=== PATIENT | female | born 1990 | race Caucasian/White ===

== ENCOUNTER 2016-10-20 17:23 | Emergency (ER) | payer OTHER ==
[~2016-10-20] VITALS: Ht 162.6 cm; Wt 102.1 kg
[~2016-10-20 17:23] MED LIST: DOXY100C2 PO; HYDR-707 PO; PREN1TAB39 PO
--- NOTE | 2016-10-20 17:33 | ED Abdominal Pain ---
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 She's had light vaginal bleeding for one hour noticed when wiping after urinating. Ab1. She 9 weeks gestation roughly and she is scheduled to see Dr. José this Tuesday. She states "I'm extremely anxious". States that she took Zoloft and lorazepam prior to finding out she was . She states that she ran out of her IntroFly samples 2 days ago and has been nauseated since but that it did work well for her. Timing/Duration: 1-3 Hours Severity/Quality: Moderate Location: Suprapubic Radiation: No Radiation Activities at Onset: None Associated Symptoms: No Fever/Chills, No Nausea/Vomiting Allergies and Home Medications Allergies Coded Allergies: Penicillins (Unverified Allergy, Mild, 10/12/09) Home Medications Doxycycline Hyclate 100 Mg Capsule, 1 EACH PO BID for 7 Days, Ref 0 Prescribed by: FRANCO SAUCEDO MD on 10/13/09 0234 Doxylamine/Pyridoxine HCl 1 Each Tablet.dr, 2 EACH PO HS, #30 Prescribed by: MAGDALENA GALLEGOS on 10/20/16 1821 Hydrocodone Bit/Acetaminophen 1 Each Tablet, 1 EACH PO Q 4 - 6 HR PRN, #14 Ref 0 Prescribed by: FRANCO SAUCEDO MD on 10/13/09 0236 Vits W-Ca,Fe,Fa(<1MG) 1 Each Tablet, 1 EACH PO DAILY, (Reported) Review of Systems Constitutional: see HPI EENTM: No Symptoms Reported Respiratory: No Symptoms Reported Cardiovascular: No Symptoms Reported Gastrointestinal: See HPI Genitourinary: No Symptoms Reported Musculoskeletal: no symptoms reported Skin: no symptoms reported Psychiatric/Neurological: No Symptoms Reported Endocrine: No Symptoms Reported Hematologic/Lymphatic: No Symptoms Reported Past Wdckcrv-Whdgfe-Mjytcd Hx Patient Social History Alcohol Use: Denies Use Recreational Drug Use: Yes (marjuana use in past) Smoking Status: Former Smoker Recent Foreign Travel: No Contact w/Someone Who Travel: No Recent Infectious Disease Expo: No Recent Hopitalizations: No Surgeries HX Surgeries: Yes (D&C, wisdom teeth) Respiratory Hx Respiratory Disorders: No Cardiovascular Hx Cardiac Disorders: No Neurological Hx Neurological Disorders: No Reproductive System Hx Reproductive Disorders: No Sexually Transmitted Disease: No Genitourinary Hx Genitourinary Disorders: No Gastrointestinal Hx Gastrointestinal Disorders: No Musculoskeletal Hx Musculoskeletal Disorders: No Endocrine Hx Endocrine Disorders: No HEENT HX ENT Disorders: No Psychosocial Hx Psychiatric Problems: Yes Blood Transfusions Hx Blood Disorders: No Physical Exam Vital Signs VS - Last 72 Hours, by Label 10/20/16 17:28 Temp 97.9 Pulse 113 Resp 18 B/P (MAP) 146/89 Pulse Ox 94 O2 Delivery Room Air Capillary Refill : Less Than 3 Seconds General Appearance: WD/WN, no apparent distress HEENT: PERRL/EOMI, normal ENT inspection Neck: non-tender, full range of motion Respiratory: normal breath sounds, no respiratory distress, no accessory muscle use Cardiovascular: regular rate, rhythm, no murmur Gastrointestinal: normal bowel sounds, soft, tenderness Genital/Rectal: other (pelvic exam done with JABIER Ruffin at the bedside. There are no vaginal lacerations seen. There is a mild amount of dark bloody material at the cervical os) Extremities: normal range of motion, non-tender Neurologic/Psychiatric: alert, normal mood/affect, oriented x 3 Skin: normal color, warm/dry Progress/Results/Core Measures Results/Orders Lab Results Laboratory Tests Test 10/20/16 17:33 10/20/16 18:25 10/20/16 18:26 Range/Units White Blood Count 17.2 H 4.3-11.0 10^3/uL Red Blood Count 4.58 4.35-5.85 10^6/uL Hemoglobin 13.9 11.5-16.0 G/DL Hematocrit 40 35-52 % Mean Corpuscular Volume 88 80-99 FL Mean Corpuscular Hemoglobin 30 25-34 PG Mean Corpuscular Hemoglobin Concent 35 32-36 G/DL Red Cell Distribution Width 13.4 10.0-14.5 % Platelet Count 324 130-400 10^3/uL Mean Platelet Volume 10.2 7.4-10.4 FL Neutrophils (%) (Auto) 72 42-75 % Lymphocytes (%) (Auto) 21 12-44 % Monocytes (%) (Auto) 6 0-12 % Eosinophils (%) (Auto) 0 0-10 % Basophils (%) (Auto) 0 0-10 % Neutrophils # (Auto) 12.3 H 1.8-7.8 X 10^3 Lymphocytes # (Auto) 3.7 1.0-4.0 X 10^3 Monocytes # (Auto) 1.1 H 0.0-1.0 X 10^3 Eosinophils # (Auto) 0.1 0.0-0.3 10^3/uL Basophils # (Auto) 0.1 0.0-0.1 10^3/uL Neutrophils % (Manual) 73 % Lymphocytes % (Manual) 21 % Monocytes % (Manual) 3 % Eosinophils % (Manual) 0 % Basophils % (Manual) 0 % Band Neutrophils 0 % Reactive Lymphocytes 3 % Blood Morphology Comment NORMAL Human Chorionic Gonadotropin, Quant [id number] H <5 MIU/ML Urine Color STEPHANIE H Urine Clarity VERY CLOUDY H Urine pH 6 5-9 Urine Specific [place] 1.025 H 1.016-1.022 Urine Protein 3+ H NEGATIVE Urine Glucose (UA) NEGATIVE NEGATIVE Urine Ketones 4+ H NEGATIVE Urine Nitrite NEGATIVE NEGATIVE Urine Bilirubin 1+ H NEGATIVE Urine Urobilinogen 4 H NORMAL MG/DL Urine Leukocyte Esterase 2+ H NEGATIVE Urine RBC (Auto) 5+ H NEGATIVE Urine RBC 5-10 H /HPF Urine WBC 2-5 /HPF Urine Squamous Epithelial Cells TNTC H /HPF Urine Crystals NONE /LPF Urine Bacteria MODERATE H /HPF Urine Casts NONE /LPF Urine Mucus NEGATIVE /LPF Urine Culture Indicated NO My Orders Orders - MAGDALENA GALLEGOS DIVERSIONAL THERAPIST'S ASSISTANT Hcg,Quantitative (10/20/16 17:30) Ua Culture If Indicated (10/20/16 17:30) Cbc With Automated Diff (10/20/16 17:30) Us Ob Single Fetus<14 [id number] (10/20/16 17:30) Diphenhydramine Tablet (Benadryl Tablet) (10/20/16 17:45) Manual Differential (10/20/16 17:33) Wet Prep (10/20/16 18:21) Neisseria Gonorrhea Dna (10/20/16 18:21) Chlamydia Dna (10/20/16 18:21) Genital Culture (10/20/16 18:21) Ondansetron Oral Dissolve Tab (Zofran (10/20/16 19:15) Medications Given in ED Current Medications Medications Dose Ordered Sig/Ramirez Route Start Time Stop Time Status Last Admin Dose Admin Diphenhydramine HCl 25 mg ONCE ONCE PO 10/20/16 17:45 10/20/16 17:46 DC 10/20/16 17:38 25 MG Vital Signs/I&O Vital Sign - Last 12Hours 10/20/16 17:28 Temp 97.9 Pulse 113 Resp 18 B/P (MAP) 146/89 Pulse Ox 94 O2 Delivery Room Air Blood Pressure Mean: 108 Diagnostic Imaging Diagonstic Imaging: Ultrasound Comments NAME: MARGA FENTON MED REC#: [id number] PT STATUS: REG ER : 1990 PHYSICIAN: MAGDALENA GALLEGOS APRN ADMIT DATE: 10/20/16/ER Draft Date of Exam:10/20/16 US OB SINGLE FETUS<14 [id number] CLINICAL INDICATION: Patient with light spotting and minor pelvic pain. EXAM: Transabdominal OB pelvic ultrasound. COMPARISON: No recent relevant ultrasound exam. FINDINGS: LMP is 08/14/2016. GA (by LMP): 9 weeks and 4 days ROBERT (by LMP): 05/21/2017 GA (by AUA): 8 weeks and 3 days ROBERT (by AUA): 05/29/2017 Gravid uterus is noted with a single live intrauterine seen. The crown-rump length measures 1.81 cm which is consistent with 8 weeks and 3 days gestation. Heart rate is 165 beats per minute. There is a roughly 2.6 cm area of fluid involving the anterior aspect concerning for subchorionic bleed. There is an average amount of amniotic fluid present. IMPRESSION: 1: There is a single, viable, 8 week 3 day intrauterine fetus present by ultrasound. 2: Concern for a 2.6 cm area of subchorionic bleed. Dictated on workstation # [id number] Dict: 10/20/161834 Trans: 10/20/161844 [id number] Interpreted by: ISHA WINKLER MD Electronically signed by: Departure Communication Progress Notes 1910-I did discuss with the patient that her urine was concentrated and with ketones and she should receive IV fluids. She states "I haven't been able to keep anything down today". I did recommend starting an IV, giving IV fluids and IV nausea medication. Patient states "oh no, I can't be poked again, I don' t want it". I will have her sign a refusal of treatment form. I discussed the ultrasound report showing some chorionic hematoma with the patient and the need for follow-up in [address] José as scheduled. Impression Impression: Primary Impression: Subchorionic hemorrhage in first trimester Disposition: HOME, SELF-CARE Condition: Stable Departure-Patient Inst. Decision time for Depature: 18:20 Referrals: NO,LOCAL PHYSICIAN (PCP/Family) Primary Care Physician Patient Instructions: Threatened Miscarriage Add. Discharge Instructions: 1. Return to ER for any concerns 2. Follow-up with Dr. José this Tuesday as scheduled 3. All discharge instructions reviewed with patient and/or family. Voiced understanding. Scripts Doxylamine/Pyridoxine HCl ([place] 10-10 mg Tablet) 1 Each Tablet. 2 EACH PO HS, #30 TAB Prov: MAGDALENA GALLEGOS APRN 10/20/16 Copy Copies To 1: MANINDER JOSÉ PETER J APRN Oct 20, 2016 17:33
[2016-10-20 17:41] LABS: BASOPHILS # (AUTO) 0.1 10^3/uL (0.0-0.1); BASOPHILS % (AUTO) 0 % (0-10); EOSINOPHILS # (AUTO) 0.1 10^3/uL (0.0-0.3); EOSINOPHILS % (AUTO) 0 % (0-10); LYMPHOCYTES # (AUTO) 3.7 X 10^3 (1.0-4.0); LYMPHOCYTES % (AUTO) 21 % (12-44); MEAN CORPUSCULAR HEMOGLOBIN 30 PG (25-34); MEAN CORPUSCULAR HGB CONC 35 G/DL (32-36); MEAN CORPUSCULAR VOLUME 88 FL (80-99); MEAN PLATELET VOLUME 10.2 FL (7.4-10.4); MONOCYTES # (AUTO) 1.1 X 10^3 (0.0-1.0); MONOCYTES % (AUTO) 6 % (0-12); NEUTROPHILS # (AUTO) 12.3 X 10^3 (1.8-7.8); NEUTROPHILS % (AUTO) 72 % (42-75); PLATELET COUNT 324 10^3/uL (130-400); RED BLOOD COUNT 4.58 10^6/uL (4.35-5.85); RED CELL DISTRIBUTION WIDTH 13.4 % (10.0-14.5); WHITE BLOOD COUNT 17.2 10^3/uL (4.3-11.0)
[2016-10-20] MEDS ORDERED: diphenhydrAMINE 25 MG TAB (BENADRYL) PO ONE (17:45)
[2016-10-20 18:08] LABS: BAND NEUTROPHILS 0 %; BASOPHILS % (MANUAL) 0 %; EOSINOPHILS % (MANUAL) 0 %; LYMPHOCYTES % (MANUAL) 21 %; NEUTROPHILS % (MANUAL) 73 %; REACTIVE LYMPHOCYTES 3 %
[2016-10-20] MEDS ORDERED: DOXY1TAB3 PO (18:21)
[2016-10-20 18:32] LABS: KETONES,URINE 4+ (NEGATIVE); LEUKOCYTE ESTERASE ,URINE 2+ (NEGATIVE); NITRITE,URINE NEGATIVE (NEGATIVE); PH,URINE 6 (5-9); PROTEIN,URINE 3+ (NEGATIVE); UROBILINOGEN,URINE 4 MG/DL (NORMAL)
[2016-10-20 18:45] LABS: BILIRUBIN,URINE 1+ (NEGATIVE); SQUAMOUS EPITHELIAL CELL,UR TNTC /HPF
--- NOTE | 2016-10-20 18:45 | Diagnostic Imaging Report ---
CLINICAL INDICATION: Patient with light spotting and minor pelvic pain. EXAM: Transabdominal OB pelvic ultrasound. COMPARISON: No recent relevant ultrasound exam. FINDINGS: LMP is 08/14/2016. GA (by LMP): 9 weeks and 4 days ROBERT (by LMP): 05/21/2017 GA (by AUA): 8 weeks and 3 days ROBERT (by AUA): 05/29/2017 Gravid uterus is noted with a single live intrauterine seen. The crown-rump length measures 1.81 cm which is consistent with 8 weeks and 3 days gestation. Heart rate is 165 beats per minute. There is a roughly 2.6 cm area of fluid involving the anterior aspect concerning for subchorionic blood. There is an average amount of amniotic fluid present. IMPRESSION: 1: There is a single, viable, 8 week 3 day intrauterine fetus present by ultrasound. 2: Concern for a 2.6 cm area of subchorionic blood. Dictated by: Dictated on workstation # [id number]
[2016-10-20] MEDS ORDERED: ONDANSETRON 4 MG (ZOFRAN) ORAL DISSOLVE TAB PO ONE (19:15)
[2016-10-20 19:42] VITALS: BP 132/84
== END 2016-10-20 19:41 | disposition home or self-care (01) ==
LOC: EDUNIT# 17:23 → ER 17:26
DX: O20.8 Other hemorrhage in early pregnancy (principal); Z3A.08 8 weeks gestation of pregnancy; Z87.891 Personal history of nicotine dependence
CPT/HCPCS: 36415; 76801; 81000; 84702; 85007; 85027; 87070; 87210; 87491; 87591; 99284

== ENCOUNTER → 2017-01-19 | Outpatient (CLI) | payer MEDICAID, OTHER ==
[~2017-01-19] MED LIST changes: +DOXY1TAB3 PO; +HYDR-3812 PO; +IBUP-1773 PO
--- NOTE | 2017-01-19 13:49 | Diagnostic Imaging Report ---
INDICATION: anatomical evaluation survey assessment. TECHNIQUE: Multiple real-time grayscale images were obtained over the gravid uterus. COMPARISON: None FINDINGS: Fetus in breech presentation. The cervical length is measured at approximately 5 cm. The placenta is anterior and low-lying approaching level of the cervix but does not appear to represent a previa. Visualized anatomical structures appearing unremarkable. However the spine is not well demonstrated on this examination. Normal amount of amniotic fluid appears to be present. Biometrical measurements are as follows: Biparietal 5.2 cm, age 22 weeks 0 days. Head circumference 19.34 cm, age 21 weeks 5 days. Abdominal circumference 17.33 cm, age 22 weeks 2 days. Femur length 3.58 cm, age 21 weeks 3 days. Sonographic estimate age: 21 weeks 6 days. Sonographic estimated date of delivery: 05-26-17. Estimated Weight: 454 gm (+/- 66 gm). LMP percentile: 66%. heart rate: 150 beats per minute. Cervical length: 4.8 cm. number: 1 of 1. IMPRESSION: Fetus currently in breech presentation with sonographic estimated age 21 weeks 6 days for an estimated date of delivery May 26, 2017. No abnormalities demonstrated at this time, however the spine is not well demonstrated. The anteriorly positioned placenta is low lying but without definitive findings to suggest previa at this time. Would consider followup imaging for reassessment. Dictated by: Dictated on workstation # [id number]
== END ==
LOC: RAD 10:19
PROVIDERS: ATTEND Obstetrics & Gynecology
DX: Z36 Encounter for antenatal screening of mother (principal); Z3A.21 21 weeks gestation of pregnancy
CPT/HCPCS: 76805; 76817

== ENCOUNTER → 2017-03-09 | Outpatient (CLI) | payer MEDICAID ==
[~2017-03-09] MED LIST changes: -HYDR-3812 PO; -IBUP-1773 PO
--- NOTE | 2017-03-09 19:02 | Diagnostic Imaging Report ---
INDICATION: Followup ultrasound. TECHNIQUE: Multiple real-time grayscale images were obtained over the gravid uterus. COMPARISON: 10/20/2016 and 01/19/17. FINDINGS: The previous OB ultrasound exam performed on 01/19/17 noted a single live fetus of approximately 20 weeks 6 days gestation +/- 1 week. There were no abnormalities identified but the spine was not well imaged. On this study, the fetus is again identified. The fetus is cephalic in presentation. heart motion was noted and a rate of 138 bpm was recorded. There are no abnormalities identified. In particular, the spine appears to be within normal limits. On the prior study, the placenta was anterior and low-lying. On this exam, the placenta does not appear to be low-lying. There is no previa identified. The amniotic fluid volume is within normal limits. The growth parameters were not obtained for this study. IMPRESSION: 1. There is a single live fetus of approximately 20 weeks 3 days gestation +/- 1 week. The EDC remains May 29, 2017. 2. There are no abnormalities identified. In particular, the spine appears to be within normal limits. 3. The placenta is anterior but there is no previa. 4. The growth parameters were not obtained for this study. Dictated by: Dictated on workstation # [id number]
== END ==
LOC: RAD 09:45
PROVIDERS: ATTEND Obstetrics & Gynecology
DX: O34.219 Maternal care for unspecified type scar from previous cesarean delivery (principal); Z3A.00 Weeks of gestation of pregnancy not specified
CPT/HCPCS: 76816

== ENCOUNTER → 2017-05-04 | Outpatient (CLI) | payer MEDICAID ==
--- NOTE | 2017-05-04 10:06 | Diagnostic Imaging Report ---
INDICATION: Biophysical profile evaluation. Size/ date discrepancy. TECHNIQUE: Multiple real-time grayscale images were obtained over the gravid uterus. COMPARISON: 03/09/2017. FINDINGS: The heart rate is 142 beats per minute. The placenta is anterior. No placenta previa. The position is cephalic. The BELEM is 9.9 cm. Biophysical profile criteria were met with total score of 8 of 8. Biometrical measurements are as follows: Biparietal 8.76 cm, age 35 weeks 4 days, at 34th percentile. Head circumference 32.45 cm, age 36 weeks 6 days, at 28th percentile. Abdominal circumference 35.89 cm, age 36 weeks 6 days, at more than 98th percentile. Femur length 7.04 cm, age 36 weeks 1 days, at 38th percentile. Sonographic estimate age: 37 weeks 1 days. Sonographic estimated date of delivery: 05/24/2017. Estimated Weight: 3369 gm (+/- 496 gm). LMP percentile: 91%. heart rate: 142 beats per minute. number: 1 of 1. IMPRESSION: Fetus is large for gestational age. Dictated by: Dictated on workstation # [id number]
== END ==
LOC: RAD 08:42
PROVIDERS: ATTEND Obstetrics & Gynecology
DX: O26.843 Uterine size-date discrepancy, third trimester (principal); O34.219 Maternal care for unspecified type scar from previous cesarean delivery; O12.03 Gestational edema, third trimester; Z3A.37 37 weeks gestation of pregnancy
CPT/HCPCS: 76805; 76819

== ENCOUNTER 2017-05-18 10:20 | Outpatient (CLI) | payer MEDICAID ==
[~2017-05-18] VITALS: Ht 162.6 cm; Wt 108.9 kg
[2017-05-18 11:21] VITALS: BP 127/84
== END 2017-05-18 11:05 | disposition home or self-care (01) ==
LOC: PREOP 10:20
PROVIDERS: ATTEND Obstetrics & Gynecology
DX: O34.219 Maternal care for unspecified type scar from previous cesarean delivery (principal); O44.43 Low lying placenta NOS or without hemorrhage, third trimester; Z3A.00 Weeks of gestation of pregnancy not specified
CPT/HCPCS: 87081

== ENCOUNTER → 2022-09-10 | Outpatient (CLI) | payer MEDICAID ==
[~2022-09-10] MED LIST changes: +ACHD5005 PO; +IBUP-1773 PO
--- NOTE | 2022-09-10 12:11 | Diagnostic Imaging Report ---
INDICATION: 32-year-old female, supervision normal . TECHNIQUE: Multiple real-time grayscale images were obtained over the gravid uterus. COMPARISON: None FINDINGS: Single viable intrauterine currently in a cephalic presentation. Amount of amniotic fluid is normal at 15.7 cm. Placenta anterior and low lying but without previa. Visualized anatomical structures including the kidneys, bladder, stomach, intracranial structures, four-chamber heart, three-vessel cord and insertion site, spine and extremities appearing unremarkable. Maternal adnexa not visualized. Cervical length 7.6 cm. Biometrical measurements are as follows: Biparietal 5.16 cm, age 21 weeks 5 days. Head circumference 19.54 cm, age 21 weeks 6 days. Abdominal circumference 17.37 cm, age 22 weeks 3 days. Femur length 3.54 cm, age 21 weeks 2 days. Sonographic estimate age: 21 weeks 6 days. Sonographic estimated date of delivery: 01/15/2023. Estimated Weight: 451 gm (+/- 66 gm). LMP percentile: 64%. heart rate: 140 beats per minute. number: 1 of 1. IMPRESSION: 1. Single viable intrauterine , currently in a cephalic presentation. 2. Sonographic estimated age 21 weeks 6 days, with an estimated date of delivery 01/15/2023. 3. Anterior placenta is low-lying but without previa. Otherwise, no sonographic abnormalities demonstrated at this time. Dictated by: Dictated on workstation # [id number]
== END ==
LOC: RAD 09:41
PROVIDERS: ATTEND Obstetrics & Gynecology
DX: Z34.02 Encounter for supervision of normal first pregnancy, second trimester (principal); Z3A.21 21 weeks gestation of pregnancy
CPT/HCPCS: 76805

== ENCOUNTER 2023-01-04 05:31 | Outpatient (CLI) | payer MEDICAID ==
[~2023-01-04] VITALS: Ht 157.5 cm; Wt 103.8 kg
[2023-01-04] MEDS ORDERED: PREN-102 PO (10:20)
== END 2023-01-04 10:27 | disposition home or self-care (01) ==
LOC: PREOP 05:31
PROVIDERS: ATTEND Obstetrics & Gynecology
DX: Z01.818 Encounter for other preprocedural examination (principal)

== ENCOUNTER 2023-01-11 05:39 | Inpatient (IN) | payer MEDICAID ==
[2023-01-11] VITALS (8 sets, daily range): BP systolic 111–131; BP diastolic 63–82
[~2023-01-11] VITALS: Ht 157.5 cm; Wt 104.0 kg
[~2023-01-11 05:39] MED LIST changes: +PREN-102 PO
[2023-01-11] MEDS ORDERED: ceFAZolin INJECTION 2,000 MG in NS (IVPB) 50 ML IV ONE (06:00)
[2023-01-11] MEDS ORDERED: CATHETER FLUSH 10 ML SYR IV PRN (06:00)
[2023-01-11] MEDS ORDERED: METOCLOPRAMIDE INJ 10 MG/2 ML (REGLAN) IV ONE (06:00)
[2023-01-11] MEDS ORDERED: LACTATED RINGERS 1,000 ML IV PRN ×2 (06:00)
[2023-01-11] MEDS ORDERED: CITRIC ACID/SOB CIT (BICITRA) 30 ML UDC PO ONE (06:00)
[2023-01-11] MEDS ORDERED: FAMOTIDINE 20MG/2ML IV (PEPCID) ONE (06:17)
[2023-01-11 06:22] LABS: BASOPHILS # (AUTO) 0.1 10^3/uL (0.0-0.1); BASOPHILS % (AUTO) 1 % (0-10); EOSINOPHILS # (AUTO) 0.2 10^3/uL (0.0-0.3); EOSINOPHILS % (AUTO) 1 % (0-10); HEMATOCRIT 37 % (35-52); HEMOGLOBIN 11.9 g/dL (11.5-16.0); LYMPHOCYTES # (AUTO) 3.5 10^3/uL (1.0-4.0); LYMPHOCYTES % (AUTO) 32 % (12-44); MEAN CORPUSCULAR HEMOGLOBIN 29 pg (25-34); MEAN CORPUSCULAR HGB CONC 33 g/dL (32-36); MEAN CORPUSCULAR VOLUME 88 fL (80-99); MEAN PLATELET VOLUME 11.9 fL (9.0-12.2); MONOCYTES # (AUTO) 0.7 10^3/uL (0.0-1.0); MONOCYTES % (AUTO) 7 % (0-12); NEUTROPHILS # (AUTO) 6.5 10^3/uL (1.8-7.8); NEUTROPHILS % (AUTO) 59 % (42-75); PLATELET COUNT 270 10^3/uL (130-400)
[2023-01-11] MEDS ORDERED: FAMOTIDINE 20MG/2ML IV (PEPCID) IVP ONE (06:30)
[2023-01-11 06:32] LABS: ALBUMIN 3.1 GM/DL (3.2-4.5); POTASSIUM 4.1 MMOL/L (3.6-5.0)
[2023-01-11 06:33] LABS: CALCIUM 8.6 MG/DL (8.5-10.1)
[2023-01-11 06:34] LABS: TOTAL PROTEIN 6.6 GM/DL (6.4-8.2)
[2023-01-11 06:36] LABS: BILIRUBIN,TOTAL 0.2 MG/DL (0.1-1.0)
[2023-01-11 06:38] LABS: CREATININE SERUM 0.63 MG/DL (0.60-1.30)
[2023-01-11] MEDS ORDERED: fentaNYL INJ 100 MCG/2 ML AMP ONE (07:26)
[2023-01-11] MEDS ORDERED: OXYTOCIN PRE-MIX DRIP 500 ML IV ONE (07:27)
--- NOTE | 2023-01-11 07:27 | History & Physical-OB ---
OB - Chief Complaint & HPI Date/Time Date of Admission: Date of Admission: Jan 11, 2023 at 05:39 Date seen by a Provider: Jan 11, 2023 Time Seen by a Provider: 07:35 Chief Complaint/History OB-Reason for Admission/Chief: Section Hx : 4 Hx Para: 2 Expected Date of Delivery: Jan 18, 2023 Gestational Age in Weeks: 39 Gestational Age in Days: 0 Indication for : desires repeat Admission Nurse Assessment Rev: Yes History of Labs O pos Antibody neg RI RPR NR HBsAg NR HIV NR GC neg GBS neg Allergies and Home Medications Allergies Coded Allergies: Penicillins (Unverified Allergy, Mild, Pt has received Ancef and Rocephin in the past, 01/04/23) Patient Home Medication List Home Medication List Reviewed: Yes Vits #93/Iron Fum/FA ( Formula Tablet) 9 Mg Iron-267 Mcg Tablet, 1 EACH PO DAILY, (Reported) Entered as Reported by: LORI ARMENTA on 01/04/23 1020 Last Action: Reviewed Discontinued Medications Hydrocodone Bit/Acetaminophen (Lortab 5 Mg Tablet) 1 Each Tablet, 1-2 TAB PO Q4H PRN for PAIN-MODERATE Discontinued Reason: No Longer Taking Prescribed by: MANINDER JOSÉ on 05/25/171643 Ibuprofen (Ibuprofen) 600 Mg Tablet, 600 MG PO Q6H Discontinued Reason: No Longer Taking Prescribed by: MANINDER JOSÉ on 05/25/171643 OB - History Hx of Present Care: Yes Ultrasounds: Normal mid trimester US Obstetrical Complications: None Medical Complications: None Obstetrical History Hx Multiple Gestation: No Hx Stillbirth: No Hx Complication: No Hx Induced Hypertens: No Hx Maternal Gestational Diabet: No Delivery History Hx Blood Disorders: No Patient Past Medical History Anxiety/Depression BMI > 30 Immunizations Influenza Vaccine Up-to-Date: No; Not Current OB - Admission Exam Physical Exam Vitals: Vital Signs 01/11/23 06:46 Temp 36.5 Pulse 80 Resp 18 Pulse Ox 97 O2 Delivery Room Air HEENT: NCAT Heart: Rhythm Normal Lungs: Clear Abdomen: Gravid Extremities: Normal Reflexes: Normal Heart Rate: 130's Accelerations: Accelerations Present Decelerations: No Decelerations Short Term Variability: Present Certified Orthotist/Pedorthist Variability: Average (6-25) Contractions on Admission: >10 Minutes Apart Intensity: Mild Labs Laboratory Tests Test 01/11/23 06:00 Range/Units White Blood Count 11.0 4.3-11.0 10^3/uL Red Blood Count 4.16 3.80-5.11 10^6/uL Hemoglobin 11.9 11.5-16.0 g/dL Hematocrit 37 35-52 % Mean Corpuscular Volume 88 80-99 fL Mean Corpuscular Hemoglobin 29 25-34 pg Mean Corpuscular Hemoglobin Concent 33 32-36 g/dL Red Cell Distribution Width 14.9 H 10.0-14.5 % Platelet Count 270 130-400 10^3/uL Mean Platelet Volume 11.9 9.0-12.2 fL Immature Granulocyte % (Auto) 1 % Neutrophils (%) (Auto) 59 42-75 % Lymphocytes (%) (Auto) 32 12-44 % Monocytes (%) (Auto) 7 0-12 % Eosinophils (%) (Auto) 1 0-10 % Basophils (%) (Auto) 1 0-10 % Neutrophils # (Auto) 6.5 1.8-7.8 10^3/uL Lymphocytes # (Auto) 3.5 1.0-4.0 10^3/uL Monocytes # (Auto) 0.7 0.0-1.0 10^3/uL Eosinophils # (Auto) 0.2 0.0-0.3 10^3/uL Basophils # (Auto) 0.1 0.0-0.1 10^3/uL Immature Granulocyte # (Auto) 0.1 0.0-0.1 10^3/uL Sodium Level 139 135-145 MMOL/L Potassium Level 4.1 3.6-5.0 MMOL/L Chloride Level 110 H 98-107 MMOL/L Carbon Dioxide Level 17 L 21-32 MMOL/L Anion Gap 12 5-14 MMOL/L Blood Urea Nitrogen 9 7-18 MG/DL Creatinine 0.63 0.60-1.30 MG/DL Estimat Glomerular Filtration Rate 120 BUN/Creatinine Ratio 14 Glucose Level 84 70-105 MG/DL Calcium Level 8.6 8.5-10.1 MG/DL Corrected Calcium 9.3 8.5-10.1 MG/DL Total Bilirubin 0.2 0.1-1.0 MG/DL Aspartate Amino Transf (AST/SGOT) 16 5-34 U/L Alanine Aminotransferase (ALT/SGPT) 9 0-55 U/L Alkaline Phosphatase 147 H 40-136 U/L Total Protein 6.6 6.4-8.2 GM/DL Albumin 3.1 L 3.2-4.5 GM/DL OB - Assessment/Plan/Diagnosis Assessment Assessment: section Admission Dx 32 yo @ 39 weeks Previous x 2 GBS neg Admission Status: Inpatient Order (span 2 midnights) Reason for Inpatient Admission: RLTCS at 39 weeks Plan Plan: Section MYRA BARRETO DO Jan 11, 2023 07:27
[2023-01-11] MEDS ORDERED: ONDANSETRON 4 MG/2 ML (SDV) Z0FRAN IVP PRN (07:30)
[2023-01-11] MEDS ORDERED: MEASLES,MUMPS,RUBELLA 1 EA INJ SC SCH (07:30)
[2023-01-11] MEDS ORDERED: TETANUS,DIPTH,PERTUSS P/F (BOOSTRIX) 0.5 ML VIAL IM SCH (07:30)
[2023-01-11] MEDS ORDERED: NALOXONE 0.4 MG/ML 1 ML (NARCAN) VIAL IV PRN (07:30)
--- NOTE | 2023-01-11 07:30 | Discharge Inst-Women's Service ---
Discharge Inst-Women's Serv Depart Medication/Instructions New, Converted or Re-Newed RX: Transmitted to Pharmacy Final Diagnosis POD 2 RLTCS Problems Reviewed?: Yes Consults/Follow Up Additional Follow Up: Yes Orders/Referrals Dr. Faustin in 7-10 days and in 6 weeks Activity Activity: Activity as Tolerated Driving Instructions: No Driving for 1 Week NO SMOKING: NO SMOKING Nothing Inside Vagina: No Douching, No [place], No Tampons Diet Discharge Diet: No Restrictions Symptoms to Report to : Bleeding Excessive, Pain Increased, Fever Over 101 Degrees F, Vaginal Bleeding Increase, Questions/Concerns For Any Problems or Questions: Contact Your Physician Skin/Wound Care Infection Signs and Symptoms: Increased Redness, Foul Odor of Wound, Increased Drainage, Skin Itchy or Has a Rash, Increased Swelling, Temperature Above 101 F Operative Area Clean and Dry: Keep Incision Clean/Dry Stitches/[place]/Dermabond: Dermabond, Care of Stitches Bathing Instructions: MYRA Quiñonez DO Jan 11, 2023 07:30
[2023-01-11] MEDS ORDERED: DOCU100C37 PO (07:31)
[2023-01-11] MEDS ORDERED: ACHD5005 PO (07:31)
[2023-01-11] MEDS ORDERED: IBUP-844 PO (07:31)
[2023-01-11] MEDS ORDERED: ROPIVACAINE 5MG/ML 30ML VIAL ONE (08:31)
[2023-01-11] MEDS: KETOROLAC 30 MG/ML VIAL IV SCH ×3 (09:55→21:57)
[2023-01-11] MEDS: OXYTOCIN PRE-MIX DRIP 500 ML IV SCH ×2 (09:55→14:23)
[2023-01-11] MEDS: DOCUSATE SODIUM 100 MG (COLACE) CAP PO SCH ×2 (11:07→21:57)
[2023-01-11] MEDS: HYDROcodone/APAP 5 MG/325 MG (LORTAB) TAB PO PRN ×3 (11:07→23:01)
[2023-01-11] MEDS: METOCLOPRAMIDE 10 MG (REGLAN) TAB PO SCH ×2 (11:09→18:58)
[2023-01-11] MEDS ORDERED: ALPRAZolam 0.25 MG (XANAX) TAB PO PRN (11:45)
[2023-01-11] MEDS: CATHETER FLUSH 10 ML SYR IV SCH ×2 (14:00→21:57)
--- NOTE | 2023-01-11 17:08 | OPERATIVE REPORT ---
PREOPERATIVE DIAGNOSES: 1. A 32-year-old G4, P2 at 39 weeks' gestation. 2. Previous section x2. POSTOPERATIVE DIAGNOSES: 1. A 32-year-old G4, P2 at 39 weeks' gestation. 2. Previous section x2. PROCEDURE: Repeat low transverse section. SURGEON: Dillon Barreto DO LAND AGENT: Jasmine Mclaughlin DNP was necessary for manipulation and retraction throughout the procedure. ANESTHESIA: Spinal. ESTIMATED BLOOD LOSS: 500 mL URINE OUTPUT: 100 mL clear at the end of the procedure. FLUIDS: 900 mL lactated Ringer's solution. FINDINGS: A live male weighing 6 pounds 14 ounces, Apgars of 8 and 9. Grossly normal appearing uterus, bilateral fallopian tubes and ovaries. SPECIMEN SENT: None. INDICATIONS FOR PROCEDURE: This 32-year-old female is the patient who sought care in my office was uncomplicated with exception of need for repeat . She proceeded at 39 weeks, at which point we scheduled repeat . Risks of the procedure were discussed with the patient in detail preoperatively. After all of her questions were answered, she was familiar with the procedure from prior two. She was agreeable to proceed. Consent was obtained. The patient was taken to the operating room. OPERATIVE REPORT IN DETAIL: Once in the operating room, spinal analgesia was administered and found to be adequate, was placed in supine position with a leftward tilt, prepped and draped in normal sterile fashion. A timeout was performed. Anesthesia was tested. I then made a Pfannenstiel skin incision through previous existing scar using knife and carried underlying fascia using Bovie cautery. The fascial incision was extended laterally using Bovie cautery. The superior aspect of fascial incision was then grasped with Jill clamps, tented up and dissected off the underlying rectus muscles. The inferior aspect of fascial incision was then grasped with Jill clamps, tented up and dissected off the underlying rectus muscles. Rectus muscles were then dissected in the midline. We exposed the peritoneum, which I extended bluntly and opened using blunt traction. I then placed an Scot retractor peritoneal incision, which offers excellent lateral sidewall retraction. I identified lower uterine segment was found to be thinned out. There were some filmy bleeding of the left side of the serosal plane and left round ligament that had to be taken down with Metzenbaum scissors. I then identified the lower uterine segment, was found to be thinned out and make a low transverse incision. Vesicouterine peritoneum and bluntly dissected off the lower uterine segment, creating a bladder flap and then proceeded myotomy until membranes were visualized, at which point I extended the uterine incision laterally and superiorly using bandage scissors. Amniotomy was then performed in the process of doing this, clear fluid was noted. The infant was found in vertex presentation. With gentle fundal pressure, the infant's head elevated up the incision where delivered through the incision, the nares and oropharynx were bulb suctioned. Anterior and posterior shoulders were delivered. The infant was brought to the operative field where cords were clamped and cut and infant was handed off to waiting nurses in attendance. Cord blood was collected. Three-vessel cord intact placenta was delivered spontaneously thereafter. IV Pitocin was initiated facilitate uterine contraction. Uterine fundus confirmed by manual massage. The uterus was then exteriorized and cleared endometrial clots and debris. I then proceeded with closing the uterine incision using 0 Vicryl suture in a running locked fashion. Second layer of imbricating 0 Monocryl was placed. Excellent hemostasis was noted after doing this. I then placed the uterus back in the pelvis. Copiously irrigated the pelvis using normal saline. Once again, there was no active bleeding noted from any of my dissection planes. There is some intermittent bleeding from the place of adhesions and adhesiolysis. I covered this area using Surgicel hemostatic agent. I then covered the planes of my uterine incision using Interceed. I removed the Scot retractor and proceeded with closing the peritoneum using 3-0 Vicryl suture in a running fashion. Rectus muscles were reapproximated using 3-0 Vicryl suture in a running fashion. The fascia was reapproximated using 0 Vicryl suture in a running fashion. Subcutaneous tissue was reapproximated with 3-0 plain interrupted subcutaneous stitch and skin reapproximated using 4-0 Monocryl running subcuticular. Dermabond was applied to incision, sterile dressing with white tape. The patient tolerated the procedure well and was taken to recovery in stable condition. Lap and sponge counts were correct at the end of the procedure. Instrument counts correct as well. Two grams Ancef were given preoperatively for infection prophylaxis. Job ID: [id number] DocumentID: [id number] Dictated Date: 01/11/2023 11:40:[address] Supervisor Date: 01/11/2023 17:07:00 Dictated By: DILLON BARRETO DO
[2023-01-12] VITALS (10 sets, daily range): BP systolic 83–129; BP diastolic 43–92
[2023-01-12] MEDS: METOCLOPRAMIDE 10 MG (REGLAN) TAB PO SCH ×4 (04:04→17:51)
[2023-01-12] MEDS: KETOROLAC 30 MG/ML VIAL IV SCH (04:14)
[2023-01-12] MEDS: CATHETER FLUSH 10 ML SYR IV SCH (04:15)
[2023-01-12] MEDS: SIMETHICONE 80 MG (MYLICON) CHEW PO SCH ×5 (04:51→21:44)
[2023-01-12] MEDS: HYDROcodone/APAP 5 MG/325 MG (LORTAB) TAB PO PRN ×3 (04:54→19:54)
[2023-01-12 06:25] LABS: BASOPHILS % (AUTO) 0 % (0-10); EOSINOPHILS # (AUTO) 0.1 10^3/uL (0.0-0.3); EOSINOPHILS % (AUTO) 1 % (0-10); HEMATOCRIT 32 % (35-52); HEMOGLOBIN 10.1 g/dL (11.5-16.0); LYMPHOCYTES # (AUTO) 2.3 10^3/uL (1.0-4.0); LYMPHOCYTES % (AUTO) 21 % (12-44); MEAN CORPUSCULAR HEMOGLOBIN 29 pg (25-34); MEAN CORPUSCULAR HGB CONC 32 g/dL (32-36); MEAN CORPUSCULAR VOLUME 90 fL (80-99); MEAN PLATELET VOLUME 11.1 fL (9.0-12.2); MONOCYTES # (AUTO) 0.8 10^3/uL (0.0-1.0); MONOCYTES % (AUTO) 7 % (0-12); NEUTROPHILS # (AUTO) 7.6 10^3/uL (1.8-7.8); NEUTROPHILS % (AUTO) 70 % (42-75); PLATELET COUNT 213 10^3/uL (130-400); WHITE BLOOD COUNT 10.9 10^3/uL (4.3-11.0)
--- NOTE | 2023-01-12 07:04 | Postpartum Progress Note ---
Note Note Day # 1 Subjective: Patient is without complaints. Ambulating, voiding. Tolerating a regular diet without nausea or vomiting. Normal lochia. Pain is well controlled with oral pain medications. Objective: Physical Exam: General - Alert and oriented, no apparent distress Abdomen - Soft, appropriately tender to palpation, non-distended, fundus firm at umbilicus Extremities - no edema, negative Karena's bilaterally Incision- c/d/i Assessment: POD 1 RLTCS Acute blood loss anemia Plan: Routine care. Encourage breast feeding. Encourage ambulation. Ferrous sulfate supplementation. Plan for discharge tomorrow Vitals - Labs Vital Signs - I&O Vital Signs Date Time Temp Pulse Resp B/P (MAP) Pulse Ox O2 Delivery O2 Flow Rate FiO2 01/12/23 04:14 36.1 71 18 102/69 (80) 100 Room Air 01/11/23 21:57 36.7 60 18 114/73 (87) 99 Room Air 01/11/23 17:05 36.4 68 18 131/75 (93) 98 Room Air 01/11/23 13:14 36.6 70 18 123/68 (86) 96 Room Air 01/11/23 10:00 Room Air 01/11/23 10:00 36.3 18 128/72 (90) 99 Room Air 01/11/23 10:00 36.3 65 18 127/78 (94) 99 Room Air 01/11/23 09:45 36.0 18 111/73 (86) 99 Room Air 01/11/23 09:45 Room Air 01/11/23 09:30 Room Air 01/11/23 09:30 35.3 16 125/79 (94) 99 Room Air 01/11/23 09:15 35.9 16 117/63 (81) 99 Room Air 01/11/23 09:15 Room Air 01/11/23 09:15 35.9 80 16 117/63 (81) 99 Room Air I & O 01/12/23 06:59 Intake Total 1850 ml Output Total 2400 ml Balance -550 ml Labs Laboratory Tests 01/12/23 06:20: White Blood Count 10.9, Red Blood Count 3.49L, Hemoglobin 10.1L, Hematocrit 32L, Mean Corpuscular Volume 90, Mean Corpuscular Hemoglobin 29, Mean Corpuscular Hemoglobin Concent 32, Red Cell Distribution Width 15.1H, Platelet Count 213, Mean Platelet Volume 11.1, Immature Granulocyte % (Auto) 1, Neutrophils (%) (Auto) 70, Lymphocytes (%) (Auto) 21, Monocytes (%) (Auto) 7, Eosinophils (%) (Auto) 1, Basophils (%) (Auto) 0, Neutrophils # (Auto) 7.6, Lymphocytes # (Auto) 2.3, Monocytes # (Auto) 0.8, Eosinophils # (Auto) 0.1, Basophils # (Auto) 0.0, Immature Granulocyte # (Auto) 0.1 Microbiology 01/11/23 MRSA Screen - Final, Complete MRSA not isolated MYRA BARRETO DO Jan 12, 2023 07:04
[2023-01-12] MEDS ORDERED: LEXAPRO 10 MG PO SCH (09:00)
--- NOTE | 2023-01-12 09:59 | Anesthesia-Regional Post-Op ---
Regional Patient Condition Mental Status: Alert, Oriented x3 Circulation: Same as Pre-Op Headache: Absent Sensation: Full Recovery Motor Block: Absent Post Op Complications Complications None Follow Up Care/Instructions Patient Instructions None needed. Anesthesia/Patient Condition Patient is doing well, no complaints, stable vital signs, no apparent adverse anesthesia problems. No complications reported per nursing. MITZI PATEL CRNA Jan 12, 2023 09:59
[2023-01-12] MEDS: DOCUSATE SODIUM 100 MG (COLACE) CAP PO SCH ×2 (10:30→19:53)
[2023-01-12] MEDS: IBUPROFEN 600 MG (MOTRIN) TAB PO SCH ×2 (12:14→17:51)
[2023-01-13] MEDS: IBUPROFEN 600 MG (MOTRIN) TAB PO SCH ×2 (00:24→06:15)
[2023-01-13] MEDS: METOCLOPRAMIDE 10 MG (REGLAN) TAB PO SCH ×2 (00:24→06:15)
[2023-01-13 00:27] VITALS: BP 135/69
[2023-01-13] MEDS: HYDROcodone/APAP 5 MG/325 MG (LORTAB) TAB PO PRN ×2 (02:24→09:43)
[2023-01-13 06:15] VITALS: BP 115/60
--- NOTE | 2023-01-13 08:45 | Postpartum Progress Note ---
Note Note Day # 2 Subjective: Patient is without complaints. Ambulating, voiding. Tolerating a regular diet without nausea or vomiting. Normal lochia. Pain is well controlled with oral pain medications. Breast feeding. [] Objective: [] Physical Exam: General - Alert and oriented, no apparent distress Breast symmetrical no erythema or engorgement Abdomen - Soft, appropriately tender to palpation, non-distended, fundus firm at umbilicus Incision site well healed no s/s of infection Lochia minimal Extremities - no edema, negative Karena's bilaterally Assessment: [] post- day # 2, status post Low transverse delivery. Recovering well, hemodynamically stable Plan: Routine care. Encourage breast feeding. Encourage ambulation. Ferrous sulfate supplementation. Plan for discharge today Vitals - Labs Vital Signs - I&O Vital Signs Date Time Temp Pulse Resp B/P (MAP) Pulse Ox O2 Delivery O2 Flow Rate FiO2 01/13/23 06:15 36.5 72 18 115/60 (78) 98 Room Air 01/13/23 00:27 36.7 66 18 135/69 (91) 97 Room Air 01/12/23 17:52 36.2 61 18 118/67 (84) Room Air 01/12/23 13:28 36.6 88 18 119/81 (94) 99 Room Air 01/12/23 10:30 36.2 75 18 103/60 (74) 99 Room Air I & O 01/13/23 07:00 Intake Total 1900 ml Output Total 2650 ml Balance -750 ml Labs Microbiology 01/11/23 MRSA Screen - Final, Complete MRSA not isolated CHARISMA JAMES DO Jan 13, 2023 08:45
[2023-01-13 09:30] VITALS: BP 96/56
[2023-01-13] MEDS: DOCUSATE SODIUM 100 MG (COLACE) CAP PO SCH (09:33)
[2023-01-13] MEDS: SIMETHICONE 80 MG (MYLICON) CHEW PO SCH (09:33)
[2023-01-13 11:30] VITALS: BP 96/56
== END 2023-01-13 11:30 | disposition home or self-care (01) | DRG 787 ==
LOC: LDRP 05:39
PROVIDERS: ADMIT Obstetrics & Gynecology; ATTEND Obstetrics & Gynecology
PROC: 10D00Z1 Extraction of Products of Conception, Low, Open Approach (ICD-10-PCS; principal; 2023-01-11 07:52)
DX: O34.211 Maternal care for low transverse scar from previous cesarean delivery (principal); D62 Acute posthemorrhagic anemia; Z3A.39 39 weeks gestation of pregnancy; O90.81 Anemia of the puerperium; O99.344 Other mental disorders complicating childbirth; F41.9 Anxiety disorder, unspecified; F32.A Depression, unspecified; Z37.0 Single live birth; Z28.310 Unvaccinated for COVID-19
CPT/HCPCS: 36415; 80053; 85025; 85027; 86850; 86900; 86901; 87081